=== PATIENT | female | born 1940 | race Caucasian/White ===

== ENCOUNTER → 2018-01-30 | Outpatient (CLI) | payer OTHER ==
[2018-01-30 11:55] LABS: BASOPHILS # (AUTO) 0.1 X10^3/uL (0.0-0.1); BASOPHILS % (AUTO) 0.8 % (0.2-1.0); EOSINOPHILS # (AUTO) 0.2 x10^3/uL (0.0-0.2); EOSINOPHILS % (AUTO) 2.2 % (0.9-2.9); HEMATOCRIT 37.2 % (36.0-47.0); HEMOGLOBIN 12.4 g/dL (12.0-16.0); MEAN CORPUSCULAR HEMOGLOBIN 29.8 pg (27.0-34.0); MEAN CORPUSCULAR HGB CONC 33.4 g/dL (33.0-35.0); MEAN CORPUSCULAR VOLUME 89.3 fL (80.0-100.0); MEAN PLATELET VOLUME 9.8 fL (7.4-11.0); MONOCYTES # (AUTO) 0.6 x10^3/uL (0.3-0.8); MONOCYTES % (AUTO) 9.1 % (0.0-13.0); NEUTROPHILS # (AUTO) 5.2 x10^3/uL (2.2-4.8); NEUTROPHILS % (AUTO) 73.9 % (42.0-75.0); PLATELET COUNT 203 X10^3/uL (150.0-450.0); RED BLOOD COUNT 4.17 X10^6/uL (3.5-5.4); RED CELL DISTRIBUTION WIDTH 13.9 % (11.6-16.5)
--- NOTE | 2018-01-30 11:56 | VAS ---
HISTORY: Lower extremity edema cholecystectomy Study: Bilateral lower extremity venous Doppler ultrasound Comparison: None TECHNIQUE: Multiple valladares scale and color flow Doppler images of the deep venous system were obtained of the right and left lower extremity. FINDINGS: The deep venous system of the right and left lower extremities were evaluated from the level of the c ommon femoral vein through the popliteal vein. Normal color flow and augmentation can be observed. In addition, normal compression is seen throughout the deep venous system. IMPRESSION: 1. Negative for DVT. Reported By:
--- NOTE | 2018-01-30 12:01 | RAD ---
Examination: Chest, PA and lateral views History: Lower extremity edema Findings: Moderately severe cardiomegaly with central pulmonary vascular distention. Blunting of left costophrenic sulcus. No acute pulmonary consolidation or pneumothorax. Impression: Cardiomegaly with CHF. Pleural deformity at the bases may be related to chronic pleural t hickening or small pleural fluid collections. Reported By:
[2018-01-30 12:13] LABS: ALANINE AMINOTRANSFERASE 28 Units/L (12-78); ALBUMIN 3.2 g/dL (3.4-5.0); ALKALINE PHOSPHATASE 82 Units/L (46-116); AMYLASE 55 Units/L (25-115); ASPARTATE AMINO TRANSFERASE 23 Units/L (15-37); BLOOD UREA NITROGEN 21 mg/dL (7-18); CALCIUM 9.5 mg/dL (8.5-10.1); CHLORIDE 95 mmol/L (98-107); COR CA(FOR HYPOALB) 10.1 mg/dL (8.5-10.1); COR NA(FOR HYPERGLY) 145 mmol/L (136-145); CREATININE 1.04 mg/dL (0.55-1.02); LIPASE 352 Units/L (73-393); SODIUM 143 mmol/L (136-145); TOTAL PROTEIN 7.5 g/dL (6.4-8.2); eGFR BLACK RACES > 60 (>60); eGFR NON BLACK RACES 55 (>60)
[2018-01-30 12:16] LABS: B-TYPE NATRIURETIC PEPTIDE 222 pg/mL (0-79)
[2018-01-30 12:24] LABS: CARBON DIOXIDE > 45.0 mmol/L (21-32)
== END | disposition home or self-care (01) | DRG 948 ==
LOC: LAB 10:49
PROVIDERS: ATTEND Nurse Practitioner
DX: R60.0 Localized edema (principal); R06.02 Shortness of breath; R05 Cough; R53.83 Other fatigue; R10.84 Generalized abdominal pain; R11.0 Nausea; I51.7 Cardiomegaly; I50.9 Heart failure, unspecified
CPT/HCPCS: 36415; 71046; 80053; 82150; 83690; 83880; 85025; 93970

== ENCOUNTER 2022-10-03 15:40 | Observation (INO) ==
--- NOTE | 2022-10-03 15:53 | DR.SOBA ---
HPI Time Seen Time Seen by Provider: 10/03/22 15:53 Complaints Chief Complaint Doctors Comments: 81 y/o female sent over from PCP's office for evaluation. Has hospitalized at another facility last week for coughing. Per spouse, viral infection. Went to PCP's office today, feeling worse. + cough, not very productive. + weakness, dyspnea. Shortness of breath worse with exertion. No significant swelling of her legs. No fever, chest pain, bowel or bladder issues. Reviewed Nurses Notes Reviewed: Yes Source History Provided: Patient and Significant Other PMH PMH Past Medical History: Asthma, CHF, COPD, CVA, Diabetes and Sleep Apnea Past Surgical History: Yes Surgical History: Other Family History Family Medical History: Diabetes Mellitus ROS Review of Systems Constitutional: Weakness Eyes: No Symptoms Reported ENTM: No Symptoms Reported Respiratoy: Non-Productive Cough and Short of Breath Cardiovascular: No Symptoms Reported Gastrointestinal/Abdominal: No Symptoms Reported Genitourinary: No Symptoms Reported Neurological: Weakness Musculoskeletal: No Symptoms Reported Integumentary: No Symptoms Reported Hematologic/Lymphatic: No Symptoms Reported All Other Systems: Reviewed and Negative PE Vital Signs Vitals: Temperature 98.9 F Pulse Rate 102 Respiratory Rate 57 Blood Pressure [Right Arm] 127/58 Blood Pressure 173/74 O2 Sat by Pulse Oximetry 92 General General Appearance: Alert and Other (+ frequent dry cough) Eyes Eye exam: PERRL and EOMI ENT ENT Exam: Mucous Membranes Moist Neck Neck Exam: Normal Inspection and Full ROM Respiratory Respiratory Exam: negative Accessory Muscle Use or Respiratory Distress Respiratory Exam: Bilateral: Rales Cardiovascular Cardiovascular Exam: Regular Rate, Normal Rhythm and Normal Heart Sounds Abdominal Exam Abdominal Exam: Soft; negative Tenderness Extremities Extremities Exam: negative Edema Back Back Exam: Normal Inspection Neurologic Neurological Exam: Alert, Oriented X3 and CN II-XII Intact; negative Motor Sensory Deficit Skin Skin Exam: Warm and Dry MDM Differential Diagnosis Differential Diagnosis: Bronchitis, CHF and Pneumonia COURSE Treatment Treatment: 81 y/o female sent from PCP's office for admission. Vital signs acceptable. W/u initiated. PE concerning more for pneumonia, in a pt with COPD. No peripheral edema. CXR with increased markings/COPD. Pt given IV antibiotic, IV steroids and breathing treatment. WBC 14K, BNP slightly elevated. Recommend admission for treatment of pneumonia/COPD. Discussed with Dr Leblanc, accepts the admission. ROR Labs Reviewed Laboratory Results Reviewed?: Yes Result Diagrams: 10/03/22 16:52 10/03/22 16:52 Laboratory: WBC 14.8 X10^3/uL (3.6-10.0) H 10/03/22 16:52 RBC 3.26 X10^6/uL (3.5-5.4) L 10/03/22 16:52 Hgb 9.9 g/dL (12.0-16.0) L 10/03/22 16:52 Hct 31.0 % (36.0-47.0) L 10/03/22 16:52 MCV 95.1 fL (80.0-100.0) 10/03/22 16:52 MCH 30.5 pg (27.0-34.0) 10/03/22 16:52 MCHC 32.1 g/dL (33.0-35.0) L 10/03/22 16:52 RDW 14.5 % (11.6-16.5) 10/03/22 16:52 Plt Count 227 X10^3/uL (150.0-450.0) 10/03/22 16:52 MPV 10.0 fL (7.4-11.0) 10/03/22 16:52 Neut % (Auto) 89.9 % (42.0-75.0) H 10/03/22 16:52 Lymph % (Auto) 5.3 % (21.0-51.0) L 10/03/22 16:52 [place] % (Auto) 3.8 % (0.0-13.0) 10/03/22 16:52 Eos % (Auto) 0.4 % (0.9-2.9) L 10/03/22 16:52 Baso % (Auto) 0.6 % (0.2-1.0) 10/03/22 16:52 Neut # (Auto) 13.3 x10^3/uL (2.2-4.8) H 10/03/22 16:52 Lymph # (Auto) 0.8 X10^3/uL (1.3-2.9) L 10/03/22 16:52 [place] # (Auto) 0.6 x10^3/uL (0.3-0.8) 10/03/22 16:52 Eos # (Auto) 0.1 x10^3/uL (0.0-0.2) 10/03/22 16:52 Baso # (Auto) 0.1 X10^3/uL (0.0-0.1) 10/03/22 16:52 Absolute Nucleated RBC 0.0 /100WBC 10/03/22 16:52 Sodium 139 mmol/L (136-145) 10/03/22 16:52 Corrected Sodium 141 mmol/L (136-145) 10/03/22 16:52 Potassium 5.3 mmol/L (3.5-5.1) H 10/03/22 16:52 Chloride 99 mmol/L (98-107) 10/03/22 16:52 Carbon Dioxide 34.6 mmol/L (21-32) H 10/03/22 16:52 BUN 77 mg/dL (7-18) H 10/03/22 16:52 Creatinine 1.91 mg/dL (0.55-1.02) H 10/03/22 16:52 Est GFR (MDRD) Af Amer 33 (>60) L 10/03/22 16:52 Est GFR (MDRD) Non-Af 27 (>60) L 10/03/22 16:52 Glucose 197 mg/dL (65-99) H 10/03/22 16:52 Lactic Acid 0.5 mmol/L (0.4-2.0) 10/03/22 16:52 Calcium 8.9 mg/dL (8.5-10.1) 10/03/22 16:52 Corrected Calcium 9.5 mg/dL (8.5-10.1) 10/03/22 16:52 Total Bilirubin 0.40 mg/dL (0.2-1.0) 10/03/22 16:52 AST 17 Units/L (15-37) 10/03/22 16:52 ALT 14 Units/L (12-78) 10/03/22 16:52 Alkaline Phosphatase 80 Units/L (46-116) 10/03/22 16:52 Troponin I High Sens 25.2 ng/L (4.0-60.0) 10/03/22 16:52 B-Natriuretic Peptide 315 pg/mL (0-79) H 10/03/22 16:52 Total Protein 7.1 g/dL (6.4-8.2) 10/03/22 16:52 Albumin 3.2 g/dL (3.4-5.0) L 10/03/22 16:52 Globulin 3.9 g/dL (2.5-4.5) 10/03/22 16:52 Albumin/Globulin Ratio 0.8 Ratio (1.1-2.1) L 10/03/22 16:52 Specimen Type Clean catch urine 10/03/22 15:41 Urine Color Straw (YELLOW) 10/03/22 15:41 Urine Appearance Clear (CLEAR) 10/03/22 15:41 Urine pH 5.0 (5.0 - 8.0) 10/03/22 15:41 Ur Specific [place] 1.010 (1.000-1.030) 10/03/22 15:41 Urine Protein Negative (NEGATIVE) 10/03/22 15:41 Urine Glucose (UA) Negative (NEGATIVE) 10/03/22 15:41 Urine Ketones Negative (NEGATIVE) 10/03/22 15:41 Urine Blood Negative (NEGATIVE) 10/03/22 15:41 Urine Nitrite Negative (NEGATIVE) 10/03/22 15:41 Urine Bilirubin Negative (NEGATIVE) 10/03/22 15:41 Urine Urobilinogen Normal (NORMAL) 10/03/22 15:41 Ur Leukocyte Esterase Negative (NEGATIVE) 10/03/22 15:41 Urine RBC Cancelled 10/03/22 15:41 Urine WBC Cancelled 10/03/22 15:41 Ur Squamous Epith Cells Cancelled 10/03/22 15:41 Ur Transition Epith Cell Cancelled 10/03/22 15:41 Ur Renal Epithelial Cell Cancelled 10/03/22 15:41 Calcium Oxalate Crystal Cancelled 10/03/22 15:41 Cystine Crystals Cancelled 10/03/22 15:41 Uric Acid Crystals Cancelled 10/03/22 15:41 Triple Phos Crystals Cancelled 10/03/22 15:41 Tyrosine Crystals Cancelled 10/03/22 15:41 Other Crystals Cancelled 10/03/22 15:41 Amorphous Sediment Cancelled 10/03/22 15:41 Urine Bacteria Cancelled 10/03/22 15:41 Hyaline Casts Cancelled 10/03/22 15:41 Granular Casts Cancelled 10/03/22 15:41 Fine Granular Casts Cancelled 10/03/22 15:41 Coarse Granular Casts Cancelled 10/03/22 15:41 RBC Casts Cancelled 10/03/22 15:41 Other Casts Cancelled 10/03/22 15:41 Urine Mucus Cancelled 10/03/22 15:41 Urine Trichomonas Cancelled 10/03/22 15:41 Urine Yeast Cancelled 10/03/22 15:41 Urine Sperm Cancelled 10/03/22 15:41 Ur Culture Indicated? Cancelled 10/03/22 15:41 SARS-CoV-2 (PCR) Negative (NEGATIVE) 10/03/22 16:57 Influenza Type A (PCR) Negative (NEGATIVE) 10/03/22 16:57 Influenza Type B (PCR) Negative (NEGATIVE) 10/03/22 16:57 RSV (PCR) Negative (NEGATIVE) 10/03/22 16:57 Labs reviewed. EKG Rate: 89 [place]: RAD Rhythm: NSR Block: 1 ST: Nonsp Opioid Opioid Risk Tool Age (Julian box if 16-45): No History of Preadolescent Sexual Abuse: No Total: 0 Total Score Risk Category: Low Risk Copyright: Tal CAMARGO predicting aberrant behaviors Discharge Plan Diagnosis Discharge Problem: Pneumonia, COPD exacerbation Discharge Plan Patient Disposition: 09 ADMITTED INPATIENT Condition: Stable Orders to Discharge Patient Discharge Orders: Transfer (Routine); Ordered 10/03/22 Ordered By: Marlon Smith
[2022-10-03 15:59] VITALS: BMI 37.5
[2022-10-03 16:02] LABS: BILIRUBIN,URINE NEGATIVE (NEGATIVE); BLOOD/HEMOGLOBIN,URINE NEGATIVE (NEGATIVE); GLUCOSE, URINE NEGATIVE (NEGATIVE); KETONES,URINE NEGATIVE (NEGATIVE); LEUKOCYTE ESTERASE ,URINE NEGATIVE (NEGATIVE); NITRITES,URINE NEGATIVE (NEGATIVE); PROTEIN,URINE NEGATIVE (NEGATIVE); UROBILINOGEN,URINE NORMAL (NORMAL)
[2022-10-03 16:08] LABS: APPEARANCE,URINE CLEAR (CLEAR); COLOR,URINE STRAW (YELLOW)
--- NOTE | 2022-10-03 16:51 | EKG ---
Test Reason : cough, dyspnea Blood Pressure : */* mmHG Vent. Rate : 89 BPM Atrial Rate : 89 BPM P-R Int : 226 ms QRS Dur : 84 ms QT Int : 346 ms P-R-T Axes : 40 94 11 degrees QTc Int : 420 ms Sinus rhythm with 1st degree AV block Rightward axis Low voltage QRS Possible Inferior infarct , age undetermined Cannot rule out Anteroseptal infarct , age undetermined Abnormal ECG No previous ECGs available Confirmed by Zaheer Christensen ([id number]) on 10/04/2022 3:20:08 PM Referred By: Confirmed By: Zaheer Christensen
[2022-10-03 17:15] LABS: BASOPHILS # (AUTO) 0.1 X10^3/uL (0.0-0.1); BASOPHILS % (AUTO) 0.6 % (0.2-1.0); EOSINOPHILS # (AUTO) 0.1 x10^3/uL (0.0-0.2); EOSINOPHILS % (AUTO) 0.4 % (0.9-2.9); HEMOGLOBIN 9.9 g/dL (12.0-16.0); LYMPHOCYTES # (AUTO) 0.8 X10^3/uL (1.3-2.9); LYMPHOCYTES % (AUTO) 5.3 % (21.0-51.0); MEAN CORPUSCULAR HEMOGLOBIN 30.5 pg (27.0-34.0); MEAN CORPUSCULAR HGB CONC 32.1 g/dL (33.0-35.0); MEAN CORPUSCULAR VOLUME 95.1 fL (80.0-100.0); MONOCYTES # (AUTO) 0.6 x10^3/uL (0.3-0.8); MONOCYTES % (AUTO) 3.8 % (0.0-13.0); NEUTROPHILS # (AUTO) 13.3 x10^3/uL (2.2-4.8); NEUTROPHILS % (AUTO) 89.9 % (42.0-75.0); RED BLOOD COUNT 3.26 X10^6/uL (3.5-5.4); RED CELL DISTRIBUTION WIDTH 14.5 % (11.6-16.5); WHITE BLOOD COUNT 14.8 X10^3/uL (3.6-10.0)
[2022-10-03 17:24] LABS: ALBUMIN 3.2 g/dL (3.4-5.0); CALCIUM 8.9 mg/dL (8.5-10.1); CARBON DIOXIDE 34.6 mmol/L (21-32); COR CA(FOR HYPOALB) 9.5 mg/dL (8.5-10.1); CREATININE 1.91 mg/dL (0.55-1.02); TOTAL PROTEIN 7.1 g/dL (6.4-8.2)
[2022-10-03 17:25] LABS: LACTIC ACID 0.5 mmol/L (0.4-2.0)
[2022-10-03] MEDS ORDERED: SOLU-Medrol 125 MG VIAL IVP ONE (17:31)
[2022-10-03] MEDS ORDERED: VIBRAMYCIN IV ONE (17:46)
[2022-10-03] MEDS ORDERED: SOLU-Medrol 125 MG VIAL ONE (17:46)
[2022-10-03] MEDS ORDERED: NS 250 ML IV 250 ML IV ONE (17:46)
[2022-10-03] MEDS: VIBRAMYCIN 100 MG in D5W 250 ML IV 250 ML IV SCH ×3 (17:54→23:21)
--- NOTE | 2022-10-03 18:26 | RAD ---
CHEST, 1 VIEWHISTORY: C/O WHEEZING AND SOB.Study: Single view of the chest.Comparison:NoneFindings:Cardiomegaly and pulmonary vascular congestion.No focal consolidations, pleural effusions or pneumothorax. Osseous structures demonstrate no acute abnormality.IMPRESSION:1. Cardiomegaly and pulmonary vascular congestion.Electronically signed by: KALLI KARIMI (Oct 03, 2022 18:25:07)
[2022-10-03] MEDS: DUONEB 0.5 MG/3 MG (3 mL) NEB SCH (21:00)
[2022-10-03] MEDS: SOLU-Medrol 40 MG VIAL IVP SCH (21:14)
[2022-10-03] MEDS: ROBITUSSIN DM PO PRN (21:16)
[2022-10-03] MEDS ORDERED: DUONEB 0.5 MG/3 MG (3 mL) NEB SCH (22:00)
[2022-10-04] MEDS: SOLU-Medrol 40 MG VIAL IVP SCH ×3 (05:44→21:28)
[2022-10-04] MEDS: ROBITUSSIN DM PO PRN ×2 (05:54→09:25)
[2022-10-04 06:49] LABS: BASOPHILS % (AUTO) 0.1 % (0.2-1.0); HEMATOCRIT 29.3 % (36.0-47.0); HEMOGLOBIN 9.6 g/dL (12.0-16.0); LYMPHOCYTES # (AUTO) 0.5 X10^3/uL (1.3-2.9); LYMPHOCYTES % (AUTO) 3.8 % (21.0-51.0); MEAN CORPUSCULAR HEMOGLOBIN 30.7 pg (27.0-34.0); MEAN CORPUSCULAR HGB CONC 32.7 g/dL (33.0-35.0); MEAN CORPUSCULAR VOLUME 93.9 fL (80.0-100.0); MEAN PLATELET VOLUME 9.8 fL (7.4-11.0); MONOCYTES # (AUTO) 0.1 x10^3/uL (0.3-0.8); MONOCYTES % (AUTO) 0.6 % (0.0-13.0); NEUTROPHILS # (AUTO) 11.6 x10^3/uL (2.2-4.8); NEUTROPHILS % (AUTO) 95.5 % (42.0-75.0); RED BLOOD COUNT 3.12 X10^6/uL (3.5-5.4); RED CELL DISTRIBUTION WIDTH 14.8 % (11.6-16.5); WHITE BLOOD COUNT 12.1 X10^3/uL (3.6-10.0)
[2022-10-04 07:02] LABS: ALBUMIN 2.8 g/dL (3.4-5.0); CALCIUM 8.9 mg/dL (8.5-10.1); CARBON DIOXIDE 34.6 mmol/L (21-32); COR CA(FOR HYPOALB) 9.9 mg/dL (8.5-10.1); CREATININE 1.5 mg/dL (0.55-1.02); TOTAL PROTEIN 6.8 g/dL (6.4-8.2)
[2022-10-04 07:25] LABS: PLATELET MORPHOLOGY COMMENT NORMAL (NORMAL); TOXIC GRANULATION SLIGHT
[2022-10-04] MEDS: DUONEB 0.5 MG/3 MG (3 mL) NEB SCH ×4 (08:20→20:55)
[2022-10-04] MEDS ORDERED: VIBRAMYCIN IV ONE (08:48)
[2022-10-04] MEDS: VIBRAMYCIN 100 MG in D5W 250 ML IV 250 ML IV SCH ×2 (08:53→20:33)
--- NOTE | 2022-10-04 09:21 | RAD ---
HISTORYSOBSTUDYCHEST, 1 [id number]/2022FINDINGSLinear areas in the right lung base are probably atelectasis. Progressed slightly since the prior study. No obvious abnormality in the upper right lung or left lung.Cardiomegaly is present. Vascular calcifications are present compatible with atherosclerosis.Bones are unremarkable.EKG leads are noted.IMPRESSION1. Minimal right basilar atelectasis, progressed2. CardiomegalyElectronically signed by: Tomás Conley (Oct 04, 2022 09:19:55)
--- NOTE | 2022-10-04 09:42 | DR.H&P ---
H&P - History & Physical for Day of: H&P Date: 10/03/22 - Chief Complaint Chief Complaint: SOB, COUGH, WEAKNESS - History of Present Illness History of Present Illness: IS A 81 YEAR OLD PATIENT OF OURS. SHE PRESENTED TO THE ER WITH COMPLAINTS OF COUGH, SHORTNESS OF BREATH, AND INCREASED WEAKNESS. SHE WAS APPARENTLY HOSPITALIZED AT ANOTHER FACILITY LAST WEEKS FOR AN APPARENT VIRAL INFECTION. PATIENT REPORTS WORSENING OF SYMPTOMS SINCE RELEASE FROM THE HOSPITAL. SHE REPORTS THAT SHORTNESS OF BREATH IS WORSE WITH EXERTION. SHE DENIES FEVER, CHEST PAIN, OR BLADDER ISSUES. HER PMH INCLUDES CHF, COPD, SLEEP APNEA, HIATAL HERNIA. ON ARRIVAL TO THE ER, HER VITALS WERE: 98.9-89-30-96%-186/72. LABS WERE OBTAINED. WBC 14.8, RBC 3.26, HGB 9.9, HCT 31.0, PLT COUNT 227, SODIUM 139, POTASSIUM 5.3, CARBON DIOXIDE 34.6, BUN 77, CREATININE 1.91, GLUCOSE 197, LACTIC ACID 0.5, AST 17, ALT 14, ALK PHOS 80, TROPONIN 25.2, BNP 315, TOTAL PROTEIN 7.1, ALBUMIN 3.2. URINALYSIS WAS OBTAINED AND WAS UNREMARKABLE. COVID, INFLUENZA, AND RSV NEGATIVE. A RESPIRATORY VIRAL PANEL WAS SET UP. BLOOD CULTURES WERE SET UP. A CHEST XRAY WAS OBTAINED AND REVEALED: 1. Cardiomegaly and pulmonary vascular congestion. IN THE ER, SHE WAS GIVEN SOLU-MEDROL 125MG IV X 1 DOSE AND A DUONEB. SHE WAS ADMITTED TO THE HOSPITAL OBSERVATION STATUS FOR FURTHER EVALUATION AND TREATMENT OF COPD EXACERBATION AND BRONCHOPNEUMONIA. SHE WAS STARTED ON DOXYCYCLINE 100MG IV Q12H, SOLU-MEDROL 40MG IV Q8H, ROBITUSSIN DM 10ML QID, DUONEBS QID, AND PULMICORT NEBS BID. WE WILL REVIEW HER HOME MEDICATIONS WHEN THEY ARE AVAILABLE TO US. WE WILL OBTAIN AN ECHOCARDIOGRAM. OTHERWISE, WE WILL FOLLOW-UP WITH AM LABS AND CONTINUE TO MONITOR. TIME SPENT ON CLINICAL ASSESSMENT, REVIWING LABS AND IMAGING, DECISION MAKING, AND DOCUMENTATION GREATER THAN 75 MINUTES. - Past Medical History Past Medical History: Diabetes, CVA, COPD, Asthma, Sleep Apnea, CHF - Past Surgical History Surgical History: Abdominal Surgery - Family History Family Medical History: Diabetes Mellitus, Heart Failure - Social History Does patient currently use any type of tobacco product: No Have you used tobacco products in the last 12 months: No Type of Tobacco Use: None Does any household member use tobacco: No Alcohol Use: None Drug Use: None - Medications Home Medications: No Known Allergies Allergy (Verified 10/03/22 17:55) - Review of Systems Constitutional: Weakness Eyes: No Symptoms Reported ENT: No Symptoms Reported Respiratory: See HPI, Cough, Shortness of Breath, SOB with Excertion, Wheezing Cardiovascular: No Symptoms Reported Gastrointestinal: No Symptoms Reported Genitourinary: No Symptoms Reported Musculoskeletal: No Symptoms Reported Skin: No Symptoms Reported Neurological: See HPI, Weakness - Physical Exam Vital Signs: Temperature 97.9 F Pulse Rate [Right] 74 Pulse Rate 86 Respiratory Rate 20 Blood Pressure [Right Arm] 116/55 Blood Pressure 173/74 O2 Sat by Pulse Oximetry 94 Oriented: Normal Eyes: Normal Ear: Normal Nose: Normal Throat: Normal Respiratory: Wheezes Throughout Cardiovascular: Normal : Normal Auscultation: Bowel Sounds: Normal Palpation: Normal Tenderness: Normal Skin: Normal Musculoskeletal: Normal Psychiatric: Normal Mood Description: Calm Affect: Normal Speech Pattern: Clear - Assessment/Plan (1) Bronchopneumonia Status: Acute Plan: ADMIT, DOXYCYCLINE 100MG IV Q12H, SOLU-MEDROL 40MG IV Q8H, ROBITUSSIN DM 10ML QID, DUONEBS QID, AND PULMICORT NEBS BID (2) COPD exacerbation Status: Acute - Allergies Allergies/Adverse Reactions: Allergies Allergy/AdvReac Type Severity Reaction Status Date / Time No Known Allergies Allergy Verified 10/03/22 17:55
[2022-10-04] MEDS: ROBITUSSIN DM PO SCH ×4 (10:27→20:33)
[2022-10-04] MEDS ORDERED: BUTT CREAM (COMPOUND) TOP PRN (11:25)
[2022-10-04] MEDS: PULMICORT NEB TX 0.5 MG NEB SCH ×2 (13:54→20:55)
[2022-10-05] MEDS: SOLU-Medrol 40 MG VIAL IVP SCH ×4 (05:08→20:59)
[2022-10-05 06:50] LABS: BASOPHILS % (AUTO) 0.2 % (0.2-1.0); HEMATOCRIT 31.8 % (36.0-47.0); HEMOGLOBIN 10.2 g/dL (12.0-16.0); LYMPHOCYTES # (AUTO) 0.6 X10^3/uL (1.3-2.9); MEAN CORPUSCULAR HEMOGLOBIN 30.6 pg (27.0-34.0); MEAN CORPUSCULAR HGB CONC 32.2 g/dL (33.0-35.0); MEAN CORPUSCULAR VOLUME 95.2 fL (80.0-100.0); MEAN PLATELET VOLUME 10.1 fL (7.4-11.0); MONOCYTES # (AUTO) 0.3 x10^3/uL (0.3-0.8); MONOCYTES % (AUTO) 1.8 % (0.0-13.0); NEUTROPHILS # (AUTO) 13.1 x10^3/uL (2.2-4.8); RED BLOOD COUNT 3.34 X10^6/uL (3.5-5.4); RED CELL DISTRIBUTION WIDTH 14.9 % (11.6-16.5)
[2022-10-05 07:01] LABS: ALBUMIN 3.1 g/dL (3.4-5.0); CALCIUM 9.1 mg/dL (8.5-10.1); CARBON DIOXIDE 33.9 mmol/L (21-32); COR CA(FOR HYPOALB) 9.8 mg/dL (8.5-10.1); CREATININE 1.65 mg/dL (0.55-1.02); TOTAL PROTEIN 7.4 g/dL (6.4-8.2)
[2022-10-05 07:11] LABS: BAND NEUTROPHILS % 3 % (0-10)
[2022-10-05 07:37] LABS: BAND NEUTROPHILS % 1 % (0-10); PLATELET MORPHOLOGY COMMENT NORMAL (NORMAL)
[2022-10-05 07:38] LABS: STOMATOCYTES SLIGHT; TOXIC GRANULATION SLIGHT
[2022-10-05] MEDS: ROBITUSSIN DM PO SCH ×4 (08:32→20:59)
[2022-10-05] MEDS: VIBRAMYCIN 100 MG in D5W 250 ML IV 250 ML IV SCH ×2 (08:32→20:58)
[2022-10-05] MEDS: DUONEB 0.5 MG/3 MG (3 mL) NEB SCH ×4 (08:33→20:55)
[2022-10-05] MEDS: PULMICORT NEB TX 0.5 MG NEB SCH ×2 (08:33→20:55)
[2022-10-05] MEDS: PREVACID PO SCH (08:46)
--- NOTE | 2022-10-05 09:05 | RAD ---
HISTORYsob Relevant Clinical InformationSTUDYCHEST, 1 [id number]/16/2022, 10/03/2022FINDINGSStable cardiomegaly. Right basilar atelectasis or infiltrate. Left base opacity with small left pleural effusion. No visible pneumothorax or acute osseous finding.IMPRESSIONCardiomegaly with bibasilar opacities and probable small left pleural effusion. Atelectasis or infiltrate. Continued follow-up recommended.Electronically signed by: Mayur Romero (Oct 05, 2022 09:03:54)
[2022-10-05] MEDS ORDERED: LASIX IVP ONE (09:08)
--- NOTE | 2022-10-05 10:23 | PCM.PROG ---
Progress Note - Progress Note for Day of Date of Exam: 10/05/22 - Subjective Subjective: IS CURRENTLY INPATIENT STATUS FOR TREATMENT OF BRONCHOPNEUMONIA AND COPD EXACERBATION. TODAY, SHE IS ALERT AND ORIENTED, SITTING UP IN CHAIR ON MORNING ROUNDS. SHE COMPLAINS OF PERSISTENT COUGH AND SHORTNESS OF BREATH, BUT DENIES OTHER COMPLAINTS. SHE REPORTS SLIGHT INCREASE IN SHORTNESS OF BREATH TODAY. ON EXAMINATION, HEART IS REGULAR IN RATE AND RHYTHM. BILATERAL LUNGS ARE NOTED WITH SCATTERED WHEEZING. ABDOMEN IS ROUND, SOFT, AND NON-TENDER WITH NORMAL BOWEL SOUNDS NOTED IN ALL QUADRANTS. TRACE LOWER EXTREMITY EDEMA NOTED. HER VITALS THIS MORNING ARE: 97.6-87-20-100%-146/75. LABS WERE OBTAINED. WBC 14.0, RBC 3.34, HGB 10.2, HCT 31.8, PLT COUNT 279, SODIUM 133, POTASSIUM 4.7, CHLORIDE 94, CARBON DIOXIDE 33.9, BUN 63, CREATININE 1.65, GLUCOSE 443, CALCIUM 9.1, AST 12, ALT 12, ALK PHOS 92, BNP 1890, TOTAL PROTEIN 7.4, ALBUMIN 3.1. BLOOD CULTURES ARE PENDING. CHEST XRAY WAS OBTAINED THIS MORNING AND REVEALED: Cardiomegaly with bibasilar opacities and probable small left pleural effusion. Atelectasis or infiltrate. SHE IS CURRENTLY RECEIVING DOXYCYCLINE 100MG IV Q12H, SOLU-MEDROL 40MG IV Q8H, ROBITUSSIN DM 10ML QID, DUONEBS QID, AND PULMICORT NEBS BID. TODAY, WE WILL ADMINISTER LASIX 20MG IV X 1 DOSE. OTHERWISE, WE WILL FOLLOW-UP WITH AM LABS AND CHEST XRAY AND CONTINUE TO MONITOR. TIME SPENT ON CLINICAL ASSESSMENT, REVIWING LABS AND IMAGING, DECISION MAKING, AND DOCUMENTATION GREATER THAN 45 MINUTES. - Past Medical Family Social History Past Med/Fam/Surg Hx: No changes since H&P Allergies: Allergies No Known Allergies Allergy (Verified 10/03/22 17:55) - Review of Systems ROS: No change since H&P - Vital Signs and I&O's Vital Signs: Temperature 97.6 F Pulse Rate [Right] 87 Pulse Rate 92 Respiratory Rate 20 Blood Pressure [Right Arm] 146/75 Blood Pressure 173/74 O2 Sat by Pulse Oximetry 95 Intake and Output: Intake & Output 10/02/22 10/03/22 10/04/2222 11:59 11:59 11:59 11:59 Intake Total 480 / 480 1901 190 Balance 480 / 480 1901 - Physical Exam Oriented: Normal Eyes: Normal Ear: Normal Nose: Normal Throat: Normal Respiratory: Generalized, Wheezes Cardiovascular: Normal : Normal Auscultation: Bowel Sounds: Normal Palpation: Normal Tenderness: Normal Skin: Normal Musculoskeletal: Normal Psychiatric: Normal Mood Description: Calm Affect: Normal Speech Pattern: Clear, Appropriate - Laboratory and Diagnostics Result Diagrams: 10/05/22 05:37 10/05/22 05:37 Labs: Laboratory WBC 14.0 X10^3/uL (3.6-10.0) H 10/05/22 05:37 RBC 3.34 X10^6/uL (3.5-5.4) L 10/05/22 05:37 Hgb 10.2 g/dL (12.0-16.0) L 10/05/22 05:37 Hct 31.8 % (36.0-47.0) L 10/05/22 05:37 MCV 95.2 fL (80.0-100.0) 10/05/22 05:37 MCH 30.6 pg (27.0-34.0) 10/05/22 05:37 MCHC 32.2 g/dL (33.0-35.0) L 10/05/22 05:37 RDW 14.9 % (11.6-16.5) 10/05/22 05:37 Plt Count 279 X10^3/uL (150.0-450.0) 10/05/22 05:37 Plt Count Comment Adequate (ADEQUATE) 10/05/22 05:37 MPV 10.1 fL (7.4-11.0) 10/05/22 05:37 Neut % (Auto) 94.0 % (42.0-75.0) H 10/05/22 05:37 Lymph % (Auto) 4.0 % (21.0-51.0) L 10/05/22 05:37 [place] % (Auto) 1.8 % (0.0-13.0) 10/05/22 05:37 Eos % (Auto) 0.0 % (0.9-2.9) L 10/05/22 05:37 Baso % (Auto) 0.2 % (0.2-1.0) 10/05/22 05:37 Neut # (Auto) 13.1 x10^3/uL (2.2-4.8) H 10/05/22 05:37 Lymph # (Auto) 0.6 X10^3/uL (1.3-2.9) L 10/05/22 05:37 [place] # (Auto) 0.3 x10^3/uL (0.3-0.8) 10/05/22 05:37 Eos # (Auto) 0.0 x10^3/uL (0.0-0.2) 10/05/22 05:37 Baso # (Auto) 0.0 X10^3/uL (0.0-0.1) 10/05/22 05:37 Absolute Nucleated RBC 0.0 /100WBC 10/05/22 05:37 Total Counted 100 10/05/22 05:37 Neutrophils % (Manual) 90 % (39-76) H 10/05/22 05:37 Band Neutrophils % 1 % (0-10) 10/05/22 05:37 Lymphocytes % (Manual) 8 % (13-43) L 10/05/22 05:37 Monocytes % (Manual) 1 % (4-9) L 10/05/22 05:37 Toxic Granulation Slight A 10/05/22 05:37 Plt Morphology Comment Normal (NORMAL) 10/05/22 05:37 RBC Morphology Abnormal (NORMAL) A 10/05/22 05:37 Stomatocytes Slight A 10/05/22 05:37 Sodium 133 mmol/L (136-145) L 10/05/22 05:37 Corrected Sodium 141 mmol/L (136-145) 10/05/22 05:37 Potassium 4.7 mmol/L (3.5-5.1) 10/05/22 05:37 Chloride 94 mmol/L (98-107) L 10/05/22 05:37 Carbon Dioxide 33.9 mmol/L (21-32) H 10/05/22 05:37 BUN 63 mg/dL (7-18) H 10/05/22 05:37 Creatinine 1.65 mg/dL (0.55-1.02) H 10/05/22 05:37 Est GFR (MDRD) Af Amer 39 (>60) L 10/05/22 05:37 Est GFR (MDRD) Non-Af 32 (>60) L 10/05/22 05:37 Glucose 443 mg/dL (65-99) H 10/05/22 05:37 Lactic Acid 0.5 mmol/L (0.4-2.0) 10/03/22 16:52 Calcium 9.1 mg/dL (8.5-10.1) 10/05/22 05:37 Corrected Calcium 9.8 mg/dL (8.5-10.1) 10/05/22 05:37 Total Bilirubin 0.30 mg/dL (0.2-1.0) 10/05/22 05:37 AST 12 Units/L (15-37) L 10/05/22 05:37 ALT 12 Units/L (12-78) 10/05/22 05:37 Alkaline Phosphatase 92 Units/L (46-116) 10/05/22 05:37 Troponin I High Sens 25.2 ng/L (4.0-60.0) 10/03/22 16:52 B-Natriuretic Peptide 1890 pg/mL (0-79) H* 10/05/22 05:37 Total Protein 7.4 g/dL (6.4-8.2) 10/05/22 05:37 Albumin 3.1 g/dL (3.4-5.0) L 10/05/22 05:37 Globulin 4.3 g/dL (2.5-4.5) 10/05/22 05:37 Albumin/Globulin Ratio 0.7 Ratio (1.1-2.1) L 10/05/22 05:37 Specimen Type Clean catch urine 10/03/22 15:41 Urine Color Straw (YELLOW) 10/03/22 15:41 Urine Appearance Clear (CLEAR) 10/03/22 15:41 Urine pH 5.0 (5.0 - 8.0) 10/03/22 15:41 Ur Specific [place] 1.010 (1.000-1.030) 10/03/22 15:41 Urine Protein Negative (NEGATIVE) 10/03/22 15:41 Urine Glucose (UA) Negative (NEGATIVE) 10/03/22 15:41 Urine Ketones Negative (NEGATIVE) 10/03/22 15:41 Urine Blood Negative (NEGATIVE) 10/03/22 15:41 Urine Nitrite Negative (NEGATIVE) 10/03/22 15:41 Urine Bilirubin Negative (NEGATIVE) 10/03/22 15:41 Urine Urobilinogen Normal (NORMAL) 10/03/22 15:41 Ur Leukocyte Esterase Negative (NEGATIVE) 10/03/22 15:41 Urine RBC Cancelled 10/03/22 15:41 Urine WBC Cancelled 10/03/22 15:41 Ur Squamous Epith Cells Cancelled 10/03/22 15:41 Ur Transition Epith Cell Cancelled 10/03/22 15:41 Ur Renal Epithelial Cell Cancelled 10/03/22 15:41 Calcium Oxalate Crystal Cancelled 10/03/22 15:41 Cystine Crystals Cancelled 10/03/22 15:41 Uric Acid Crystals Cancelled 10/03/22 15:41 Triple Phos Crystals Cancelled 10/03/22 15:41 Tyrosine Crystals Cancelled 10/03/22 15:41 Other Crystals Cancelled 10/03/22 15:41 Amorphous Sediment Cancelled 10/03/22 15:41 Urine Bacteria Cancelled 10/03/22 15:41 Hyaline Casts Cancelled 10/03/22 15:41 Granular Casts Cancelled 10/03/22 15:41 Fine Granular Casts Cancelled 10/03/22 15:41 Coarse Granular Casts Cancelled 10/03/22 15:41 RBC Casts Cancelled 10/03/22 15:41 Other Casts Cancelled 10/03/22 15:41 Urine Mucus Cancelled 10/03/22 15:41 Urine Trichomonas Cancelled 10/03/22 15:41 Urine Yeast Cancelled 10/03/22 15:41 Urine Sperm Cancelled 10/03/22 15:41 Ur Culture Indicated? Cancelled 10/03/22 15:41 SARS-CoV-2 (PCR) Negative (NEGATIVE) 10/03/22 16:57 Influenza Type A (PCR) Negative (NEGATIVE) 10/03/22 16:57 Influenza Type B (PCR) Negative (NEGATIVE) 10/03/22 16:57 RSV (PCR) Negative (NEGATIVE) 10/03/22 16:57 - Plan (1) Bronchopneumonia Status: Acute Plan: DOXYCYCLINE 100MG IV Q12H, SOLU-MEDROL 40MG IV Q8H, ROBITUSSIN DM 10ML QID, DUONEBS QID, AND PULMICORT NEBS BID, LASIX 20MG IV X 1 DOSE (2) COPD exacerbation Status: Acute (3) CHF (congestive heart failure) Status: Chronic Qualifiers: Heart failure type: unspecified Heart failure chronicity: acute on chronic Qualified Code(s): I50.9 - Heart failure, unspecified (4) GERD (gastroesophageal reflux disease) Status: Chronic Qualifiers: Esophagitis presence: esophagitis presence not specified Qualified Code(s): K21.9 - Gastro-esophageal reflux disease without esophagitis
[2022-10-05] MEDS ORDERED: VIBRAMYCIN IV ONE (19:48)
[2022-10-06] MEDS: NovoLIN R (or HumuLIN R) SUBCUT PRN ×5 (00:38→21:12)
[2022-10-06] MEDS: SOLU-Medrol 40 MG VIAL IVP SCH ×3 (05:02→21:11)
[2022-10-06 05:18] LABS: BASOPHILS % (AUTO) 0 % (0.2-1.0); HEMOGLOBIN 9.7 g/dL (12.0-16.0); LYMPHOCYTES # (AUTO) 0.4 X10^3/uL (1.3-2.9); MEAN CORPUSCULAR HEMOGLOBIN 30.8 pg (27.0-34.0); MEAN CORPUSCULAR HGB CONC 32.2 g/dL (33.0-35.0); MEAN CORPUSCULAR VOLUME 95.4 fL (80.0-100.0); MEAN PLATELET VOLUME 9.5 fL (7.4-11.0); MONOCYTES # (AUTO) 0.3 x10^3/uL (0.3-0.8); MONOCYTES % (AUTO) 1.9 % (0.0-13.0); NEUTROPHILS # (AUTO) 12.9 x10^3/uL (2.2-4.8); NEUTROPHILS % (AUTO) 95.1 % (42.0-75.0); RED BLOOD COUNT 3.14 X10^6/uL (3.5-5.4); RED CELL DISTRIBUTION WIDTH 14.6 % (11.6-16.5); WHITE BLOOD COUNT 13.5 X10^3/uL (3.6-10.0)
[2022-10-06 05:31] LABS: ALBUMIN 2.8 g/dL (3.4-5.0); CALCIUM 8.9 mg/dL (8.5-10.1); CARBON DIOXIDE 35.6 mmol/L (21-32); COR CA(FOR HYPOALB) 9.9 mg/dL (8.5-10.1); CREATININE 1.6 mg/dL (0.55-1.02); TOTAL PROTEIN 6.5 g/dL (6.4-8.2)
[2022-10-06 05:57] LABS: BAND NEUTROPHILS % 1 % (0-10); PLATELET MORPHOLOGY COMMENT NORMAL (NORMAL)
[2022-10-06 05:58] LABS: STOMATOCYTES PRESENT
--- NOTE | 2022-10-06 07:19 | RAD ---
HISTORYSOBSTUDYAP chestCOMPARISONDecember 2021FINDINGSSimilar appearance of cardiomegaly and basal infiltrates. The left lower lobe is incompletely demonstrated; obscured by overlying soft tissues and large heart. The upper lungs remain clear. There is no evidence for pneumothorax.IMPRESSIONNo change or new abnormality since 1 day prior.Electronically signed by: HENRY LEY (Oct 06, 2022 07:17:45)
[2022-10-06] MEDS ORDERED: VIBRAMYCIN IV ONE ×2 (08:26→08:28)
[2022-10-06] MEDS: ROBITUSSIN DM PO SCH ×4 (08:50→21:11)
[2022-10-06] MEDS: VIBRAMYCIN 100 MG in D5W 250 ML IV 250 ML IV SCH ×2 (08:50→21:12)
[2022-10-06] MEDS: PREVACID PO SCH (08:50)
[2022-10-06] MEDS: SYNTHROID 125 mcg TAB PO SCH (08:50)
[2022-10-06] MEDS ORDERED: LASIX IVP ONE (09:05)
[2022-10-06] MEDS: DUONEB 0.5 MG/3 MG (3 mL) NEB SCH ×4 (09:06→21:00)
[2022-10-06] MEDS: PULMICORT NEB TX 0.5 MG NEB SCH ×2 (09:06→21:00)
[2022-10-06] MEDS: COREG TAB 6.25 MG PO SCH ×2 (10:25→21:11)
[2022-10-06] MEDS: COLACE CAP 100 MG PO SCH (10:25)
[2022-10-06] MEDS: SNACK - Diabetic Appropriate PO SCH (21:11)
[2022-10-06] MEDS: SINGULAIR TAB 10 MG PO SCH (21:11)
[2022-10-07] MEDS: SOLU-Medrol 40 MG VIAL IVP SCH ×3 (05:26→21:18)
[2022-10-07] MEDS: NovoLIN R (or HumuLIN R) SUBCUT PRN ×4 (06:10→21:20)
[2022-10-07 06:38] LABS: BASOPHILS % (AUTO) 0.2 % (0.2-1.0); HEMATOCRIT 28.5 % (36.0-47.0); HEMOGLOBIN 9.4 g/dL (12.0-16.0); LYMPHOCYTES # (AUTO) 0.4 X10^3/uL (1.3-2.9); MEAN CORPUSCULAR HEMOGLOBIN 31.2 pg (27.0-34.0); MEAN CORPUSCULAR VOLUME 94.3 fL (80.0-100.0); MEAN PLATELET VOLUME 10.1 fL (7.4-11.0); MONOCYTES # (AUTO) 0.2 x10^3/uL (0.3-0.8); MONOCYTES % (AUTO) 2.6 % (0.0-13.0); NEUTROPHILS # (AUTO) 8.4 x10^3/uL (2.2-4.8); NEUTROPHILS % (AUTO) 93.2 % (42.0-75.0); RED BLOOD COUNT 3.02 X10^6/uL (3.5-5.4); RED CELL DISTRIBUTION WIDTH 14.4 % (11.6-16.5)
[2022-10-07 06:45] LABS: ALBUMIN 2.7 g/dL (3.4-5.0); CALCIUM 8.7 mg/dL (8.5-10.1); CARBON DIOXIDE 31.7 mmol/L (21-32); COR CA(FOR HYPOALB) 9.7 mg/dL (8.5-10.1); CREATININE 1.48 mg/dL (0.55-1.02)
--- NOTE | 2022-10-07 07:10 | RAD ---
HISTORYBIL PNEUMONIA; SOB Relevant Clinical InformationSTUDYCHEST, 1 [id number]/18/2022.FINDINGSThe trachea is midline. The cardiac silhouette is enlarged.. Small to moderate-sized left pleural effusion. The bony thorax is unremarkable.IMPRESSIONCardiomegalySmall to moderate-sized left pleural effusionNo significant change from previous 10/06/2022Electronically signed by: Jay Porter (Oct 07, 2022 07:08:28)
[2022-10-07 07:36] LABS: PLATELET MORPHOLOGY COMMENT NORMAL (NORMAL); STOMATOCYTES PRESENT
[2022-10-07] MEDS: DUONEB 0.5 MG/3 MG (3 mL) NEB SCH ×4 (08:44→20:45)
[2022-10-07] MEDS: PULMICORT NEB TX 0.5 MG NEB SCH ×2 (08:44→20:45)
[2022-10-07] MEDS: SYNTHROID 125 mcg TAB PO SCH (09:17)
[2022-10-07] MEDS: COREG TAB 6.25 MG PO SCH ×2 (09:17→21:18)
[2022-10-07] MEDS: COLACE CAP 100 MG PO SCH (09:17)
[2022-10-07] MEDS: PREVACID PO SCH (09:17)
[2022-10-07] MEDS: ROBITUSSIN DM PO SCH ×4 (09:18→21:18)
[2022-10-07] MEDS: VIBRAMYCIN 100 MG in D5W 250 ML IV 250 ML IV SCH ×2 (09:18→21:17)
[2022-10-07] MEDS ORDERED: AQUAPHOR TOP PRN (10:29)
--- NOTE | 2022-10-07 21:12 | PCM.PROG ---
Progress Note - Progress Note for Day of Date of Exam: 10/06/22 - Subjective Subjective: IS CURRENTLY INPATIENT STATUS FOR TREATMENT OF BRONCHOPNEUMONIA, COPD EXACERBATION, AND CHF. TODAY, SHE IS ALERT AND ORIENTED, SITTING UP IN CHAIR ON MORNING ROUNDS. SHE COMPLAINS OF PERSISTENT COUGH AND SHORTNESS OF BREATH, BUT DENIES OTHER COMPLAINTS. SHE REPORTS SOME IMPROVEMENT IN SYMPTOMS TODAY. ON EXAMINATION, HEART IS REGULAR IN RATE AND RHYTHM. BILATERAL LUNGS ARE NOTED WITH SCATTERED WHEEZING. ABDOMEN IS ROUND, SOFT, AND NON-TENDER WITH NORMAL BOWEL SOUNDS NOTED IN ALL QUADRANTS. TRACE LOWER EXTREMITY EDEMA NOTED. HER VITALS THIS MORNING ARE: 97.5-89-20-96%-123/68. LABS WERE OBTAINED. WBC 13.5, RBC 3.14, HGB 9.7, HCT 30.0, PLT COUNT 261, SODIUM 133, POTASSIUM 6.0, CHLORIDE 96, CARBON DIOXIDE 35.6, BUN 64, CREATININE 1.60, GLUCOSE 399, AST 13, ALT 12, ALK PHOS 79, BNP 870, TOTAL PROTEIN 6.5, ALBUMIN 2.8. BLOOD CULTURES ARE PENDING. CHEST XRAY WAS OBTAINED THIS MORNING AND REVEALED: Similar appearance of cardiomegaly and basal infiltrates. The left lower lobe is incompletely demonstrated; obscured by overlying soft tissues and large heart. The upper lungs remain clear. There is no evidence for pneumothorax. SHE IS CURRENTLY RECEIVING DOXYCYCLINE 100MG IV Q12H, SOLU-MEDROL 40MG IV Q8H, ROBITUSSIN DM 10ML QID, DUONEBS QID, AND PULMICORT NEBS BID. TODAY, WE WILL ADMINISTER LASIX 20MG IV X 1 DOSE AGAIN TODAY. OTHERWISE, WE WILL FOLLOW-UP WITH AM LABS AND CHEST XRAY AND CONTINUE TO MONITOR. TIME SPENT ON CLINICAL ASSESSMENT, REVIWING LABS AND IMAGING, DECISION MAKING, AND DOCUMENTATION GREATER THAN 45 MINUTES. - Past Medical Family Social History Past Med/Fam/Surg Hx: No changes since H&P Allergies: Allergies No Known Allergies Allergy (Verified 10/03/22 17:55) - Review of Systems ROS: No change since H&P - Vital Signs and I&O's Vital Signs: Temperature 97.9 F Pulse Rate [Right] 84 Pulse Rate 82 Respiratory Rate 20 Blood Pressure [Right Arm] 149/59 Blood Pressure 173/74 O2 Sat by Pulse Oximetry 96 Intake and Output: Intake & Output 10/05/22 10/06/22 10/07/22 10/08/22 11:59 11:59 11:59 11:59 Intake Total 1901 2300 / 2300 1190 / 1190 1120 / 1120 Balance 1901 2300 / 2300 1190 / 1190 1120 / 1120 - Physical Exam Oriented: Normal Eyes: Normal Ear: Normal Nose: Normal Throat: Normal Respiratory: Generalized, Wheezes Cardiovascular: Normal : Normal Auscultation: Bowel Sounds: Normal Palpation: Normal Tenderness: Normal Skin: Normal Musculoskeletal: Normal Psychiatric: Normal Mood Description: Calm Affect: Normal Speech Pattern: Clear, Appropriate - Laboratory and Diagnostics Result Diagrams: 10/07/22 05:29 10/07/22 05:29 Labs: 10/03/22 16:59 Blood Blood Culture - Preliminary 10/03/22 16:52 Blood Blood Culture - Preliminary Laboratory WBC 9.0 X10^3/uL (3.6-10.0) 10/07/22 05:29 RBC 3.02 X10^6/uL (3.5-5.4) L 10/07/22 05:29 Hgb 9.4 g/dL (12.0-16.0) L 10/07/22 05:29 Hct 28.5 % (36.0-47.0) L 10/07/22 05:29 MCV 94.3 fL (80.0-100.0) 10/07/22 05:29 MCH 31.2 pg (27.0-34.0) 10/07/22 05:29 MCHC 33.0 g/dL (33.0-35.0) 10/07/22 05:29 RDW 14.4 % (11.6-16.5) 10/07/22 05:29 Plt Count 238 X10^3/uL (150.0-450.0) 10/07/22 05:29 Plt Count Comment Adequate (ADEQUATE) 10/07/22 05:29 MPV 10.1 fL (7.4-11.0) 10/07/22 05:29 Neut % (Auto) 93.2 % (42.0-75.0) H 10/07/22 05:29 Lymph % (Auto) 4.0 % (21.0-51.0) L 10/07/22 05:29 [place] % (Auto) 2.6 % (0.0-13.0) 10/07/22 05:29 Eos % (Auto) 0.0 % (0.9-2.9) L 10/07/22 05:29 Baso % (Auto) 0.2 % (0.2-1.0) 10/07/22 05:29 Neut # (Auto) 8.4 x10^3/uL (2.2-4.8) H 10/07/22 05:29 Lymph # (Auto) 0.4 X10^3/uL (1.3-2.9) L 10/07/22 05:29 [place] # (Auto) 0.2 x10^3/uL (0.3-0.8) L 10/07/22 05:29 Eos # (Auto) 0.0 x10^3/uL (0.0-0.2) 10/07/22 05:29 Baso # (Auto) 0.0 X10^3/uL (0.0-0.1) 10/07/22 05:29 Absolute Nucleated RBC 0.0 /100WBC 10/07/22 05:29 Total Counted 100 10/07/22 05:29 Neutrophils % (Manual) 97 % (39-76) H 10/07/22 05:29 Band Neutrophils % 1 % (0-10) 10/06/22 04:44 Lymphocytes % (Manual) 3 % (13-43) L 10/07/22 05:29 Monocytes % (Manual) 2 % (4-9) L 10/06/22 04:44 Toxic Granulation Slight A 10/05/22 05:37 Plt Morphology Comment Normal (NORMAL) 10/07/22 05:29 RBC Morphology Abnormal (NORMAL) A 10/07/22 05:29 Stomatocytes Present 10/07/22 05:29 Sodium 135 mmol/L (136-145) L 10/07/22 05:29 Corrected Sodium 141 mmol/L (136-145) 10/07/22 05:29 Potassium 5.5 mmol/L (3.5-5.1) H 10/07/22 05:29 Chloride 98 mmol/L (98-107) 10/07/22 05:29 Carbon Dioxide 31.7 mmol/L (21-32) 10/07/22 05:29 BUN 69 mg/dL (7-18) H 10/07/22 05:29 Creatinine 1.48 mg/dL (0.55-1.02) H 10/07/22 05:29 Est GFR (MDRD) Af Amer 44 (>60) L 10/07/22 05:29 Est GFR (MDRD) Non-Af 36 (>60) L 10/07/22 05:29 Glucose 346 mg/dL (65-99) H 10/07/22 05:29 POC Glucose (mg/dL) 388 mg/dL (65-99) H 10/07/22 20:15 Lactic Acid 0.5 mmol/L (0.4-2.0) 10/03/22 16:52 Calcium 8.7 mg/dL (8.5-10.1) 10/07/22 05:29 Corrected Calcium 9.7 mg/dL (8.5-10.1) 10/07/22 05:29 Total Bilirubin 0.30 mg/dL (0.2-1.0) 10/07/22 05:29 AST 13 Units/L (15-37) L 10/07/22 05:29 ALT 14 Units/L (12-78) 10/07/22 05:29 Alkaline Phosphatase 71 Units/L (46-116) 10/07/22 05:29 Troponin I High Sens 25.2 ng/L (4.0-60.0) 10/03/22 16:52 B-Natriuretic Peptide 719 pg/mL (0-79) H* 10/07/22 05:29 Total Protein 6.0 g/dL (6.4-8.2) L 10/07/22 05:29 Albumin 2.7 g/dL (3.4-5.0) L 10/07/22 05:29 Globulin 3.3 g/dL (2.5-4.5) 10/07/22 05:29 Albumin/Globulin Ratio 0.8 Ratio (1.1-2.1) L 10/07/22 05:29 Specimen Type Clean catch urine 10/03/22 15:41 Urine Color Straw (YELLOW) 10/03/22 15:41 Urine Appearance Clear (CLEAR) 10/03/22 15:41 Urine pH 5.0 (5.0 - 8.0) 10/03/22 15:41 Ur Specific [place] 1.010 (1.000-1.030) 10/03/22 15:41 Urine Protein Negative (NEGATIVE) 10/03/22 15:41 Urine Glucose (UA) Negative (NEGATIVE) 10/03/22 15:41 Urine Ketones Negative (NEGATIVE) 10/03/22 15:41 Urine Blood Negative (NEGATIVE) 10/03/22 15:41 Urine Nitrite Negative (NEGATIVE) 10/03/22 15:41 Urine Bilirubin Negative (NEGATIVE) 10/03/22 15:41 Urine Urobilinogen Normal (NORMAL) 10/03/22 15:41 Ur Leukocyte Esterase Negative (NEGATIVE) 10/03/22 15:41 Urine RBC Cancelled 10/03/22 15:41 Urine WBC Cancelled 10/03/22 15:41 Ur Squamous Epith Cells Cancelled 10/03/22 15:41 Ur Transition Epith Cell Cancelled 10/03/22 15:41 Ur Renal Epithelial Cell Cancelled 10/03/22 15:41 Calcium Oxalate Crystal Cancelled 10/03/22 15:41 Cystine Crystals Cancelled 10/03/22 15:41 Uric Acid Crystals Cancelled 10/03/22 15:41 Triple Phos Crystals Cancelled 10/03/22 15:41 Tyrosine Crystals Cancelled 10/03/22 15:41 Other Crystals Cancelled 10/03/22 15:41 Amorphous Sediment Cancelled 10/03/22 15:41 Urine Bacteria Cancelled 10/03/22 15:41 Hyaline Casts Cancelled 10/03/22 15:41 Granular Casts Cancelled 10/03/22 15:41 Fine Granular Casts Cancelled 10/03/22 15:41 Coarse Granular Casts Cancelled 10/03/22 15:41 RBC Casts Cancelled 10/03/22 15:41 Other Casts Cancelled 10/03/22 15:41 Urine Mucus Cancelled 10/03/22 15:41 Urine Trichomonas Cancelled 10/03/22 15:41 Urine Yeast Cancelled 10/03/22 15:41 Urine Sperm Cancelled 10/03/22 15:41 Ur Culture Indicated? Cancelled 10/03/22 15:41 SARS-CoV-2 (PCR) Negative (NEGATIVE) 10/03/22 16:57 Influenza Type A (PCR) Negative (NEGATIVE) 10/03/22 16:57 Influenza Type B (PCR) Negative (NEGATIVE) 10/03/22 16:57 RSV (PCR) Negative (NEGATIVE) 10/03/22 16:57 Resp Viral Panel (PCR) See scanned report 10/03/22 21:20 - Plan (1) Bronchopneumonia Status: Acute Plan: DOXYCYCLINE 100MG IV Q12H, SOLU-MEDROL 40MG IV Q8H, ROBITUSSIN DM 10ML QID, DUONEBS QID, AND PULMICORT NEBS BID, LASIX 20MG IV X 1 DOSE (2) COPD exacerbation Status: Acute (3) CHF (congestive heart failure) Status: Chronic Qualifiers: Heart failure type: unspecified Heart failure chronicity: acute on chronic Qualified Code(s): I50.9 - Heart failure, unspecified (4) GERD (gastroesophageal reflux disease) Status: Chronic Qualifiers: Esophagitis presence: esophagitis presence not specified Qualified Code(s): K21.9 - Gastro-esophageal reflux disease without esophagitis
[2022-10-07] MEDS: SINGULAIR TAB 10 MG PO SCH (21:18)
[2022-10-07] MEDS: LASIX IVP SCH (21:27)
[2022-10-07] MEDS: SNACK - Diabetic Appropriate PO SCH (21:30)
--- NOTE | 2022-10-07 21:47 | PCM.PROG ---
Progress Note - Progress Note for Day of Date of Exam: 10/07/22 - Subjective Subjective: IS CURRENTLY INPATIENT STATUS FOR TREATMENT OF BRONCHOPNEUMONIA, COPD EXACERBATION, AND CHF. TODAY, SHE IS ALERT AND ORIENTED, SITTING UP IN CHAIR ON MORNING ROUNDS. SHE COMPLAINS OF PERSISTENT COUGH AND SHORTNESS OF BREATH, BUT DENIES OTHER COMPLAINTS. SHE REPORTS SOME IMPROVEMENT IN SYMPTOMS TODAY AND REPORTS THAT COUGH IS NOW PRODUCTIVE. ON EXAMINATION, HEART IS REGULAR IN RATE AND RHYTHM. BILATERAL LUNGS ARE NOTED WITH SCATTERED WHEEZING. ABDOMEN IS ROUND, SOFT, AND NON-TENDER WITH NORMAL BOWEL SOUNDS NOTED IN ALL QUADRANTS. TRACE LOWER EXTREMITY EDEMA NOTED. HER VITALS THIS MORNING ARE: 97.8-79-20-100%-124/65. LABS WERE OBTAINED. WBC 9.0, RBC 3.02, HGB 9.4, HCT 28.5, PLT COUNT 238, SODIUM 135, POTASSIUM 5.5, CHLORIDE 98, BUN 69, CREATININE 1.48, GLUCOSE 346, CALCIUM 8.7, TOTAL BILI 0.30, AST 13, ALT 14, ALK PHOS 71, BNP 719, TOTAL PROTEIN 6.0, ALBUMIN 2.7. BLOOD CULTURES ARE PENDING. CHEST XRAY WAS OBTAINED THIS MORNING AND REVEALED: Cardiomegaly. Small to moderate-sized left pleural effusion. No significant change from previous 10/06/2022. SHE IS CURRENTLY RECEIVING DOXYCYCLINE 100MG IV Q12H, SOLU-MEDROL 40MG IV Q8H, ROBITUSSIN DM 10ML QID, DUONEBS QID, AND PULMICORT NEBS BID. TODAY, WE WILL ADMINISTER LASIX 20MG IV X 1 DOSE. OTHERWISE, WE WILL FOLLOW-UP WITH AM LABS AND CHEST XRAY AND CONTINUE TO MONITOR. TIME SPENT ON CLINICAL ASSESSMENT, REVIWING LABS AND IMAGING, DECISION MAKING, AND DOCUMENTATION GREATER THAN 45 MINUTES. - Past Medical Family Social History Past Med/Fam/Surg Hx: No changes since H&P Allergies: Allergies No Known Allergies Allergy (Verified 10/03/22 17:55) - Review of Systems ROS: No change since H&P - Vital Signs and I&O's Vital Signs: Temperature 97.9 F Pulse Rate [Right] 84 Pulse Rate 82 Respiratory Rate 20 Blood Pressure [Right Arm] 149/59 Blood Pressure 173/74 O2 Sat by Pulse Oximetry 96 Intake and Output: Intake & Output 1210/06/22 10/07/22 10/08/22 11:59 11:59 11:59 11:59 Intake Total 1901 2300 / 2300 1190 / 1190 1120 / 1120 Balance 1901 2300 / 2300 1190 / 1190 1120 / 1120 - Physical Exam Oriented: Normal Eyes: Normal Ear: Normal Nose: Normal Throat: Normal Respiratory: Generalized, Wheezes Cardiovascular: Normal : Normal Auscultation: Bowel Sounds: Normal Tenderness: Normal Skin: Normal Musculoskeletal: Normal Psychiatric: Normal Mood Description: Calm Affect: Normal Speech Pattern: Clear, Appropriate - Laboratory and Diagnostics Result Diagrams: 10/07/22 05:29 10/07/22 05:29 Labs: 10/03/22 16:59 Blood Blood Culture - Preliminary 10/03/22 16:52 Blood Blood Culture - Preliminary Laboratory WBC 9.0 X10^3/uL (3.6-10.0) 10/07/22 05:29 RBC 3.02 X10^6/uL (3.5-5.4) L 10/07/22 05:29 Hgb 9.4 g/dL (12.0-16.0) L 10/07/22 05:29 Hct 28.5 % (36.0-47.0) L 10/07/22 05:29 MCV 94.3 fL (80.0-100.0) 10/07/22 05:29 MCH 31.2 pg (27.0-34.0) 10/07/22 05:29 MCHC 33.0 g/dL (33.0-35.0) 10/07/22 05:29 RDW 14.4 % (11.6-16.5) 10/07/22 05:29 Plt Count 238 X10^3/uL (150.0-450.0) 10/07/22 05:29 Plt Count Comment Adequate (ADEQUATE) 10/07/22 05:29 MPV 10.1 fL (7.4-11.0) 10/07/22 05:29 Neut % (Auto) 93.2 % (42.0-75.0) H 10/07/22 05:29 Lymph % (Auto) 4.0 % (21.0-51.0) L 10/07/22 05:29 [place] % (Auto) 2.6 % (0.0-13.0) 10/07/22 05:29 Eos % (Auto) 0.0 % (0.9-2.9) L 10/07/22 05:29 Baso % (Auto) 0.2 % (0.2-1.0) 10/07/22 05:29 Neut # (Auto) 8.4 x10^3/uL (2.2-4.8) H 10/07/22 05:29 Lymph # (Auto) 0.4 X10^3/uL (1.3-2.9) L 10/07/22 05:29 [place] # (Auto) 0.2 x10^3/uL (0.3-0.8) L 10/07/22 05:29 Eos # (Auto) 0.0 x10^3/uL (0.0-0.2) 10/07/22 05:29 Baso # (Auto) 0.0 X10^3/uL (0.0-0.1) 10/07/22 05:29 Absolute Nucleated RBC 0.0 /100WBC 10/07/22 05:29 Total Counted 100 10/07/22 05:29 Neutrophils % (Manual) 97 % (39-76) H 10/07/22 05:29 Band Neutrophils % 1 % (0-10) 10/06/22 04:44 Lymphocytes % (Manual) 3 % (13-43) L 10/07/22 05:29 Monocytes % (Manual) 2 % (4-9) L 10/06/22 04:44 Toxic Granulation Slight A 10/05/22 05:37 Plt Morphology Comment Normal (NORMAL) 10/07/22 05:29 RBC Morphology Abnormal (NORMAL) A 10/07/22 05:29 Stomatocytes Present 10/07/22 05:29 Sodium 135 mmol/L (136-145) L 10/07/22 05:29 Corrected Sodium 141 mmol/L (136-145) 10/07/22 05:29 Potassium 5.5 mmol/L (3.5-5.1) H 10/07/22 05:29 Chloride 98 mmol/L (98-107) 10/07/22 05:29 Carbon Dioxide 31.7 mmol/L (21-32) 10/07/22 05:29 BUN 69 mg/dL (7-18) H 10/07/22 05:29 Creatinine 1.48 mg/dL (0.55-1.02) H 10/07/22 05:29 Est GFR (MDRD) Af Amer 44 (>60) L 10/07/22 05:29 Est GFR (MDRD) Non-Af 36 (>60) L 10/07/22 05:29 Glucose 346 mg/dL (65-99) H 10/07/22 05:29 POC Glucose (mg/dL) 388 mg/dL (65-99) H 10/07/22 20:15 Lactic Acid 0.5 mmol/L (0.4-2.0) 10/03/22 16:52 Calcium 8.7 mg/dL (8.5-10.1) 10/07/22 05:29 Corrected Calcium 9.7 mg/dL (8.5-10.1) 10/07/22 05:29 Total Bilirubin 0.30 mg/dL (0.2-1.0) 10/07/22 05:29 AST 13 Units/L (15-37) L 10/07/22 05:29 ALT 14 Units/L (12-78) 10/07/22 05:29 Alkaline Phosphatase 71 Units/L (46-116) 10/07/22 05:29 Troponin I High Sens 25.2 ng/L (4.0-60.0) 10/03/22 16:52 B-Natriuretic Peptide 719 pg/mL (0-79) H* 10/07/22 05:29 Total Protein 6.0 g/dL (6.4-8.2) L 10/07/22 05:29 Albumin 2.7 g/dL (3.4-5.0) L 10/07/22 05:29 Globulin 3.3 g/dL (2.5-4.5) 10/07/22 05:29 Albumin/Globulin Ratio 0.8 Ratio (1.1-2.1) L 10/07/22 05:29 Specimen Type Clean catch urine 10/03/22 15:41 Urine Color Straw (YELLOW) 10/03/22 15:41 Urine Appearance Clear (CLEAR) 10/03/22 15:41 Urine pH 5.0 (5.0 - 8.0) 10/03/22 15:41 Ur Specific [place] 1.010 (1.000-1.030) 10/03/22 15:41 Urine Protein Negative (NEGATIVE) 10/03/22 15:41 Urine Glucose (UA) Negative (NEGATIVE) 10/03/22 15:41 Urine Ketones Negative (NEGATIVE) 10/03/22 15:41 Urine Blood Negative (NEGATIVE) 10/03/22 15:41 Urine Nitrite Negative (NEGATIVE) 10/03/22 15:41 Urine Bilirubin Negative (NEGATIVE) 10/03/22 15:41 Urine Urobilinogen Normal (NORMAL) 10/03/22 15:41 Ur Leukocyte Esterase Negative (NEGATIVE) 10/03/22 15:41 Urine RBC Cancelled 10/03/22 15:41 Urine WBC Cancelled 10/03/22 15:41 Ur Squamous Epith Cells Cancelled 10/03/22 15:41 Ur Transition Epith Cell Cancelled 10/03/22 15:41 Ur Renal Epithelial Cell Cancelled 10/03/22 15:41 Calcium Oxalate Crystal Cancelled 10/03/22 15:41 Cystine Crystals Cancelled 10/03/22 15:41 Uric Acid Crystals Cancelled 10/03/22 15:41 Triple Phos Crystals Cancelled 10/03/22 15:41 Tyrosine Crystals Cancelled 10/03/22 15:41 Other Crystals Cancelled 10/03/22 15:41 Amorphous Sediment Cancelled 10/03/22 15:41 Urine Bacteria Cancelled 10/03/22 15:41 Hyaline Casts Cancelled 10/03/22 15:41 Granular Casts Cancelled 10/03/22 15:41 Fine Granular Casts Cancelled 10/03/22 15:41 Coarse Granular Casts Cancelled 10/03/22 15:41 RBC Casts Cancelled 10/03/22 15:41 Other Casts Cancelled 10/03/22 15:41 Urine Mucus Cancelled 10/03/22 15:41 Urine Trichomonas Cancelled 10/03/22 15:41 Urine Yeast Cancelled 10/03/22 15:41 Urine Sperm Cancelled 10/03/22 15:41 Ur Culture Indicated? Cancelled 10/03/22 15:41 SARS-CoV-2 (PCR) Negative (NEGATIVE) 10/03/22 16:57 Influenza Type A (PCR) Negative (NEGATIVE) 10/03/22 16:57 Influenza Type B (PCR) Negative (NEGATIVE) 10/03/22 16:57 RSV (PCR) Negative (NEGATIVE) 10/03/22 16:57 Resp Viral Panel (PCR) See scanned report 10/03/22 21:20 - Plan (1) Bronchopneumonia Status: Acute Plan: DOXYCYCLINE 100MG IV Q12H, SOLU-MEDROL 40MG IV Q8H, ROBITUSSIN DM 10ML QID, DUONEBS QID, AND PULMICORT NEBS BID, LASIX 20MG IV X 1 DOSE (2) COPD exacerbation Status: Acute (3) CHF (congestive heart failure) Status: Chronic Qualifiers: Heart failure type: unspecified Heart failure chronicity: acute on chronic Qualified Code(s): I50.9 - Heart failure, unspecified (4) GERD (gastroesophageal reflux disease) Status: Chronic Qualifiers: Esophagitis presence: esophagitis presence not specified Qualified Code(s): K21.9 - Gastro-esophageal reflux disease without esophagitis
[2022-10-08] MEDS: SOLU-Medrol 40 MG VIAL IVP SCH ×3 (05:17→21:50)
[2022-10-08] MEDS: NovoLIN R (or HumuLIN R) SUBCUT PRN ×4 (05:30→20:18)
[2022-10-08 06:40] LABS: BASOPHILS % (AUTO) 0.2 % (0.2-1.0); HEMATOCRIT 35.6 % (36.0-47.0); HEMOGLOBIN 11.7 g/dL (12.0-16.0); LYMPHOCYTES # (AUTO) 0.7 X10^3/uL (1.3-2.9); LYMPHOCYTES % (AUTO) 5.9 % (21.0-51.0); MEAN CORPUSCULAR HEMOGLOBIN 30.7 pg (27.0-34.0); MEAN CORPUSCULAR HGB CONC 32.7 g/dL (33.0-35.0); MEAN CORPUSCULAR VOLUME 93.8 fL (80.0-100.0); MEAN PLATELET VOLUME 9.8 fL (7.4-11.0); MONOCYTES # (AUTO) 0.7 x10^3/uL (0.3-0.8); MONOCYTES % (AUTO) 5.6 % (0.0-13.0); NEUTROPHILS # (AUTO) 11.2 x10^3/uL (2.2-4.8); NEUTROPHILS % (AUTO) 88.3 % (42.0-75.0); RED CELL DISTRIBUTION WIDTH 14.3 % (11.6-16.5); WHITE BLOOD COUNT 12.7 X10^3/uL (3.6-10.0)
[2022-10-08 06:57] LABS: ALBUMIN 3.1 g/dL (3.4-5.0); CALCIUM 9.3 mg/dL (8.5-10.1); CREATININE 1.6 mg/dL (0.55-1.02); TOTAL PROTEIN 6.7 g/dL (6.4-8.2)
[2022-10-08 07:27] LABS: PLATELET MORPHOLOGY COMMENT NORMAL (NORMAL)
[2022-10-08 07:28] LABS: STOMATOCYTES PRESENT
--- NOTE | 2022-10-08 07:54 | RAD ---
HISTORYFollow-up pneumonia, shortness of breathSTUDYChest AP [id number] heart remains markedly enlarged. No congestive heart failure is noted. The carlos are promise suggesting possible pulmonary arterial hypertension. Right lung and left upper lung black are clear. Increased density again identified in the retrocardiac area of the left lower lobe partially due to left pleural effusion however underlying infiltrate or atelectasis not excluded. Bony thorax is unremarkable.IMPRESSIONContinued cardiomegaly without congestive heart failureContinued increased retrocardiac density left lower lobe partially due to pleural effusion however underlying infiltrate or atelectasis not excluded.Electronically signed by: THOMAS KABA (Oct 08, 2022 07:52:55)
[2022-10-08] MEDS: PULMICORT NEB TX 0.5 MG NEB SCH ×2 (08:30→20:45)
[2022-10-08] MEDS ORDERED: VIBRAMYCIN IV ONE (08:31)
[2022-10-08] MEDS: DUONEB 0.5 MG/3 MG (3 mL) NEB SCH ×4 (08:35→20:45)
[2022-10-08] MEDS: VIBRAMYCIN 100 MG in D5W 250 ML IV 250 ML IV SCH (09:07)
[2022-10-08] MEDS: COLACE CAP 100 MG PO SCH (09:09)
[2022-10-08] MEDS: LASIX IVP SCH (09:09)
[2022-10-08] MEDS: COREG TAB 6.25 MG PO SCH ×2 (09:09→20:13)
[2022-10-08] MEDS: PREVACID PO SCH (09:09)
[2022-10-08] MEDS: ROBITUSSIN DM PO SCH ×4 (09:09→20:13)
[2022-10-08] MEDS: SYNTHROID 125 mcg TAB PO SCH (09:10)
[2022-10-08] MEDS: SINGULAIR TAB 10 MG PO SCH (20:14)
[2022-10-08] MEDS: VIBRAMYCIN PO SCH (20:16)
[2022-10-08] MEDS: SNACK - Diabetic Appropriate PO SCH (21:00)
[2022-10-09] MEDS: NovoLIN R (or HumuLIN R) SUBCUT PRN (05:56)
[2022-10-09] MEDS: SOLU-Medrol 40 MG VIAL IVP SCH (05:56)
[2022-10-09 07:14] LABS: BASOPHILS % (AUTO) 0.2 % (0.2-1.0); HEMATOCRIT 34.5 % (36.0-47.0); HEMOGLOBIN 11.3 g/dL (12.0-16.0); LYMPHOCYTES # (AUTO) 0.5 X10^3/uL (1.3-2.9); MEAN CORPUSCULAR HEMOGLOBIN 30.9 pg (27.0-34.0); MEAN CORPUSCULAR HGB CONC 32.7 g/dL (33.0-35.0); MEAN CORPUSCULAR VOLUME 94.3 fL (80.0-100.0); MONOCYTES # (AUTO) 0.5 x10^3/uL (0.3-0.8); MONOCYTES % (AUTO) 4.4 % (0.0-13.0); NEUTROPHILS # (AUTO) 9.6 x10^3/uL (2.2-4.8); NEUTROPHILS % (AUTO) 90.4 % (42.0-75.0); RED BLOOD COUNT 3.66 X10^6/uL (3.5-5.4); RED CELL DISTRIBUTION WIDTH 14.7 % (11.6-16.5); WHITE BLOOD COUNT 10.6 X10^3/uL (3.6-10.0)
[2022-10-09 07:34] LABS: ALBUMIN 2.8 g/dL (3.4-5.0); CALCIUM 8.7 mg/dL (8.5-10.1); CARBON DIOXIDE 32.8 mmol/L (21-32); COR CA(FOR HYPOALB) 9.7 mg/dL (8.5-10.1); CREATININE 1.56 mg/dL (0.55-1.02); TOTAL PROTEIN 6.1 g/dL (6.4-8.2)
[2022-10-09 08:02] LABS: METAMYELOCYTES % 2; PLATELET MORPHOLOGY COMMENT NORMAL (NORMAL); STOMATOCYTES PRESENT
[2022-10-09] MEDS: DUONEB 0.5 MG/3 MG (3 mL) NEB SCH (08:16)
[2022-10-09] MEDS: PULMICORT NEB TX 0.5 MG NEB SCH (08:16)
[2022-10-09] MEDS: ROBITUSSIN DM PO SCH (09:18)
[2022-10-09] MEDS: LASIX IVP SCH (09:19)
[2022-10-09] MEDS: COREG TAB 6.25 MG PO SCH (09:19)
[2022-10-09] MEDS: PREVACID PO SCH (09:19)
[2022-10-09] MEDS: SYNTHROID 125 mcg TAB PO SCH (09:19)
[2022-10-09] MEDS: COLACE CAP 100 MG PO SCH (09:19)
[2022-10-09] MEDS: VIBRAMYCIN PO SCH (09:19)
--- NOTE | 2022-10-09 09:21 | RAD ---
HISTORYShortness of breathSTUDYChest AP [id number] remains enlarged. No congestive heart failure is noted. Kalli are enlarged suggestive of pulmonary arterial hypertension. Right lung and left upper lung black are clear. Increased density is again identified in the retrocardiac area of the left lower lobe partially due to left pleural effusion however underlying infiltrate or atelectasis is not excluded. Bony thorax is unremarkable.IMPRESSIONNo significant change from the prior examinationElectronically signed by: THOMAS KABA (Oct 09, 2022 09:18:47)
--- NOTE | 2022-10-09 10:14 | PCM.PROG ---
Progress Note - Progress Note for Day of Date of Exam: 10/08/22 - Subjective Subjective: IS CURRENTLY OBSERVATION STATUS FOR TREATMENT OF BRONCHOPNEUMONIA AND COPD EXACERBATION. TODAY, SHE IS ALERT AND ORIENTED, SITTING UP IN CHAIR ON MORNING ROUNDS. SHE COMPLAINS OF PERSISTENT COUGH AND SOME SHORTNESS OF BREATH, BUT DENIES OTHER COMPLAINTS. SHE REPORTS SLIGHT IMPROVEMENT IN SHORTNESS OF BREATH TODAY. ON EXAMINATION, HEART IS REGULAR IN RATE AND RHYTHM. BILATERAL LUNGS ARE NOTED WITH DIMINISHED LUNG SOUNDS THROUGHOUT. ABDOMEN IS ROUND, SOFT, AND NON-TENDER WITH NORMAL BOWEL SOUNDS NOTED IN ALL QUADRANTS. TRACE LOWER EXTREMITY EDEMA NOTED. HER VITALS THIS MORNING ARE: 98.4-80-18-99%-147/67. LABS WERE OBTAINED. WBC 12.7, RBC 3.80, HGB 11.7, HCT 35.6, PLT COUNT 296, SODIUM 134, POTASSIUM 5.4, CHLORIDE 97, CARBON DIOXIDE 33.0, BUN 74, CREATININE 1.60, GLUCOSE 248, CALCIUM 9.3, TOTAL BILI 0.40, AST 13, ALT 15, ALK PHOS 76, BNP 800, TOTAL PROTEIN 6.7, ALBUMIN 3.1. BLOOD CULTURES ARE PENDING. CHEST XRAY WAS OBTAINED THIS MORNING AND REVEALED: Continued cardiomegaly without congestive heart failure. Continued increased retrocardiac density left lower lobe partially due to pleural effusion however underlying infiltrate or atelectasis not excluded. SHE IS CURRENTLY RECEIVING DOXYCYCLINE 100MG PO Q12H, SOLU-MEDROL 40MG IV Q8H, FUROSEMIDE 20MG IV DAILY, ROBITUSSIN DM 10ML QID, DUONEBS QID, AND PULMICORT NEBS BID. WE WILL CONTINUE WITH CURRENT PLAN OF CARE TODAY. OTHERWISE, WE WILL FOLLOW-UP WITH AM LABS AND CHEST XRAY AND CONTINUE TO MONITOR. TIME SPENT ON CLINICAL ASSESSMENT, REVIWING LABS AND IMAGING, DECISION MAKING, AND DOCUMENTATION GREATER THAN 45 MINUTES. - Past Medical Family Social History Past Med/Fam/Surg Hx: No changes since H&P Allergies: Allergies No Known Allergies Allergy (Verified 10/03/22 17:55) - Review of Systems ROS: No change since H&P - Vital Signs and I&O's Vital Signs: Temperature 97.9 F Pulse Rate [Right] 76 Pulse Rate 86 Respiratory Rate 20 Blood Pressure [Left Arm] 141/65 Blood Pressure [Right Arm] 148/64 Blood Pressure 173/74 O2 Sat by Pulse Oximetry 95 Intake and Output: Intake & Output 10/06/22 10/07/22 10/08/22 10/09/22 11:59 11:59 11:59 11:59 Intake Total 2300 / 2300 1190 / 1190 1954 / 1954 1160 / 1160 Balance 2300 / 2300 1190 / 1190 1954 1160 / 1160 - Physical Exam Oriented: Normal Eyes: Normal Ear: Normal Nose: Normal Throat: Normal Respiratory: Generalized, Diminished Cardiovascular: Normal : Normal Auscultation: Bowel Sounds: Normal Palpation: Normal Tenderness: Normal Skin: Normal Musculoskeletal: Normal Psychiatric: Normal Mood Description: Calm Affect: Normal Speech Pattern: Clear, Appropriate - Laboratory and Diagnostics Result Diagrams: 10/09/22 05:56 10/09/22 05:56 Labs: 10/03/22 16:59 Blood Blood Culture - Preliminary 10/03/22 16:52 Blood Blood Culture - Preliminary Laboratory WBC 10.6 X10^3/uL (3.6-10.0) H 10/09/22 05:56 RBC 3.66 X10^6/uL (3.5-5.4) 10/09/22 05:56 Hgb 11.3 g/dL (12.0-16.0) L 10/09/22 05:56 Hct 34.5 % (36.0-47.0) L 10/09/22 05:56 MCV 94.3 fL (80.0-100.0) 10/09/22 05:56 MCH 30.9 pg (27.0-34.0) 10/09/22 05:56 MCHC 32.7 g/dL (33.0-35.0) L 10/09/22 05:56 RDW 14.7 % (11.6-16.5) 10/09/22 05:56 Plt Count 275 X10^3/uL (150.0-450.0) 10/09/22 05:56 Plt Count Comment Adequate (ADEQUATE) 10/09/22 05:56 MPV 10.0 fL (7.4-11.0) 10/09/22 05:56 Neut % (Auto) 90.4 % (42.0-75.0) H 10/09/22 05:56 Lymph % (Auto) 5.0 % (21.0-51.0) L 10/09/22 05:56 [place] % (Auto) 4.4 % (0.0-13.0) 10/09/22 05:56 Eos % (Auto) 0.0 % (0.9-2.9) L 10/09/22 05:56 Baso % (Auto) 0.2 % (0.2-1.0) 10/09/22 05:56 Neut # (Auto) 9.6 x10^3/uL (2.2-4.8) H 10/09/22 05:56 Lymph # (Auto) 0.5 X10^3/uL (1.3-2.9) L 10/09/22 05:56 [place] # (Auto) 0.5 x10^3/uL (0.3-0.8) 10/09/22 05:56 Eos # (Auto) 0.0 x10^3/uL (0.0-0.2) 10/09/22 05:56 Baso # (Auto) 0.0 X10^3/uL (0.0-0.1) 10/09/22 05:56 Absolute Nucleated RBC 0.1 /100WBC 10/09/22 05:56 Total Counted 100 10/09/22 05:56 Neutrophils % (Manual) 94 % (39-76) H 10/09/22 05:56 Band Neutrophils % 1 % (0-10) 10/06/22 04:44 Lymphocytes % (Manual) 3 % (13-43) L 10/09/22 05:56 Monocytes % (Manual) 1 % (4-9) L 10/09/22 05:56 Metamyelocytes % 2 10/09/22 05:56 Toxic Granulation Slight A 10/05/22 05:37 Plt Morphology Comment Normal (NORMAL) 10/09/22 05:56 RBC Morphology Abnormal (NORMAL) A 10/09/22 05:56 Stomatocytes Present 10/09/22 05:56 Sodium 134 mmol/L (136-145) L 10/09/22 05:56 Corrected Sodium 138 mmol/L (136-145) 10/09/22 05:56 Potassium 5.5 mmol/L (3.5-5.1) H 10/09/22 05:56 Chloride 96 mmol/L (98-107) L 10/09/22 05:56 Carbon Dioxide 32.8 mmol/L (21-32) H 10/09/22 05:56 BUN 75 mg/dL (7-18) H 10/09/22 05:56 Creatinine 1.56 mg/dL (0.55-1.02) H 10/09/22 05:56 Est GFR (MDRD) Af Amer 41 (>60) L 10/09/22 05:56 Est GFR (MDRD) Non-Af 34 (>60) L 10/09/22 05:56 Glucose 266 mg/dL (65-99) H 10/09/22 05:56 POC Glucose (mg/dL) 262 mg/dL (65-99) H 10/09/22 05:31 Lactic Acid 0.5 mmol/L (0.4-2.0) 10/03/22 16:52 Calcium 8.7 mg/dL (8.5-10.1) 10/09/22 05:56 Corrected Calcium 9.7 mg/dL (8.5-10.1) 10/09/22 05:56 Total Bilirubin 0.40 mg/dL (0.2-1.0) 10/09/22 05:56 AST 13 Units/L (15-37) L 10/09/22 05:56 ALT 16 Units/L (12-78) 10/09/22 05:56 Alkaline Phosphatase 68 Units/L (46-116) 10/09/22 05:56 Troponin I High Sens 25.2 ng/L (4.0-60.0) 10/03/22 16:52 B-Natriuretic Peptide 379 pg/mL (0-79) H 10/09/22 05:56 Total Protein 6.1 g/dL (6.4-8.2) L 10/09/22 05:56 Albumin 2.8 g/dL (3.4-5.0) L 10/09/22 05:56 Globulin 3.3 g/dL (2.5-4.5) 10/09/22 05:56 Albumin/Globulin Ratio 0.8 Ratio (1.1-2.1) L 10/09/22 05:56 Specimen Type Clean catch urine 10/03/22 15:41 Urine Color Straw (YELLOW) 10/03/22 15:41 Urine Appearance Clear (CLEAR) 10/03/22 15:41 Urine pH 5.0 (5.0 - 8.0) 10/03/22 15:41 Ur Specific [place] 1.010 (1.000-1.030) 10/03/22 15:41 Urine Protein Negative (NEGATIVE) 10/03/22 15:41 Urine Glucose (UA) Negative (NEGATIVE) 10/03/22 15:41 Urine Ketones Negative (NEGATIVE) 10/03/22 15:41 Urine Blood Negative (NEGATIVE) 10/03/22 15:41 Urine Nitrite Negative (NEGATIVE) 10/03/22 15:41 Urine Bilirubin Negative (NEGATIVE) 10/03/22 15:41 Urine Urobilinogen Normal (NORMAL) 10/03/22 15:41 Ur Leukocyte Esterase Negative (NEGATIVE) 10/03/22 15:41 Urine RBC Cancelled 10/03/22 15:41 Urine WBC Cancelled 10/03/22 15:41 Ur Squamous Epith Cells Cancelled 10/03/22 15:41 Ur Transition Epith Cell Cancelled 10/03/22 15:41 Ur Renal Epithelial Cell Cancelled 10/03/22 15:41 Calcium Oxalate Crystal Cancelled 10/03/22 15:41 Cystine Crystals Cancelled 10/03/22 15:41 Uric Acid Crystals Cancelled 10/03/22 15:41 Triple Phos Crystals Cancelled 10/03/22 15:41 Tyrosine Crystals Cancelled 10/03/22 15:41 Other Crystals Cancelled 10/03/22 15:41 Amorphous Sediment Cancelled 10/03/22 15:41 Urine Bacteria Cancelled 10/03/22 15:41 Hyaline Casts Cancelled 10/03/22 15:41 Granular Casts Cancelled 10/03/22 15:41 Fine Granular Casts Cancelled 10/03/22 15:41 Coarse Granular Casts Cancelled 10/03/22 15:41 RBC Casts Cancelled 10/03/22 15:41 Other Casts Cancelled 10/03/22 15:41 Urine Mucus Cancelled 10/03/22 15:41 Urine Trichomonas Cancelled 10/03/22 15:41 Urine Yeast Cancelled 10/03/22 15:41 Urine Sperm Cancelled 10/03/22 15:41 Ur Culture Indicated? Cancelled 12/15/22 15:41 SARS-CoV-2 (PCR) Negative (NEGATIVE) 10/03/22 16:57 Influenza Type A (PCR) Negative (NEGATIVE) 10/03/22 16:57 Influenza Type B (PCR) Negative (NEGATIVE) 10/03/22 16:57 RSV (PCR) Negative (NEGATIVE) 10/03/22 16:57 Resp Viral Panel (PCR) See scanned report 10/03/22 21:20 - Plan (1) Bronchopneumonia Status: Acute Plan: DOXYCYCLINE 100MG PO Q12H, FUROSEMIDE 20MG IV DAILY, SOLU-MEDROL 40MG IV Q8H, ROBITUSSIN DM 10ML QID, DUONEBS QID, AND PULMICORT NEBS BID (2) COPD exacerbation Status: Acute (3) CHF (congestive heart failure) Status: Chronic Qualifiers: Heart failure type: unspecified Heart failure chronicity: acute on chronic Qualified Code(s): I50.9 - Heart failure, unspecified (4) GERD (gastroesophageal reflux disease) Status: Chronic Qualifiers: Esophagitis presence: esophagitis presence not specified Qualified Code(s): K21.9 - Gastro-esophageal reflux disease without esophagitis
[2022-10-09 10:15] VITALS: BP 161/68
== END 2022-10-09 11:25 | disposition home or self-care (01) ==
LOC: ER 15:40 → INTOOBSV 18:08 → MED/SURG 18:08
PROVIDERS: ADMIT Internal Medicine; ATTEND Internal Medicine
DX: J18.0 Bronchopneumonia, unspecified organism; R53.1 Weakness; K21.9 Gastro-esophageal reflux disease without esophagitis; R26.89 Other abnormalities of gait and mobility; I50.9 Heart failure, unspecified; Z20.822 Contact with and (suspected) exposure to COVID-19; R94.31 Abnormal electrocardiogram [ECG] [EKG]; J90 Pleural effusion, not elsewhere classified; J44.1 Chronic obstructive pulmonary disease with (acute) exacerbation; R06.02 Shortness of breath